=== PATIENT | male | born 1990 | race Two or more races ===

== ENCOUNTER 2023-12-05 22:30 | Observation (INO) ==
[2023-12-05 23:11] LABS: Urine Appearance Clear; Urine Bilirubin Negative (Negative); Urine Blood 2+ (Negative); Urine Color Light-Yellow; Urine Glucose Negative (Negative); Urine Ketones 1+ (Negative); Urine Nitrite Negative (Negative); Urine Protein Trace (Negative); Urine Specific Gravity 1.023 (1.002-1.030); Urine Urobilinogen Negative (Negative)
[2023-12-05 23:13] LABS: Urine Bacteria Absent /HPF (Absent); Urine Red Blood Cell 3+(>10/hpf) /HPF (0-Trace); Urine White Blood Cell Trace(0-5/hpf) /HPF (0-Trace)
[2023-12-06] MEDS: Ondansetron 4 mg VIAL 2 MG/ML 2 ml VIAL IV ONE (00:11)
[2023-12-06 00:17] LABS: ABS Basophils 0.1 10^3/uL (0.0-0.1); ABS Lymphocytes 1.5 10^3/uL (1.0-4.8); ABS Monocytes 0.3 10^3/uL (0.0-1.1); ABS Neutrophils 5.5 10^3/uL (1.5-7.6); Eosinophil % 0.2 %; Hematocrit 42.6 % (38-53); Hemoglobin 14.3 g/dL (13.2-16.3); Lymphocyte % 20.7 %; Mean Corpuscular Hemoglobin 29.2 pg (27-33); Mean Corpuscular Hgb Conc 33.7 g/dL (31-36); Mean Corpuscular Volume 86.8 fL (80-97); Mean Platelet Volume 8.9 fL (7.5-11.2); Platelet Count 221 10^3/uL (150-450); Red Blood Count 4.91 10^6/uL (4.06-5.63); Red Cell Distribution Width 13.4 % (12-17); White Blood Count 7.4 10^3/uL (3.6-10.2)
[2023-12-06 01:14] LABS: Albumin 4.8 g/dL (3.2-5.2); Albumin/Globulin Ratio 1.5 (1-3); C Reactive Protein 8.84 mg/L (<8.01); Calcium 9.7 mg/dL (8.6-10.3); Creatinine, Serum 1.89 mg/dL (0.67-1.17); Globulin 3.1 g/dL (2-4); Potassium 4.5 mmol/L (3.5-5.0); Total Protein 7.9 g/dL (6.4-8.9); eGFR CKD-EPI 47.5 (>60)
[2023-12-06] MEDS: cefTRIAXone 2 gm/50 mL D5W 2 GM/50 ML BAG IV ONE (01:53)
[2023-12-06] MEDS ORDERED: Morphine 2 MG/ML SYRINGE IV PRN ×2 (02:02→03:40)
[2023-12-06] MEDS: Lactated Ringers 1000 ml BAG 1,000 ML IV SCH ×2 (02:05→05:38)
[2023-12-06] MEDS ORDERED: Ondansetron 4 mg VIAL 2 MG/ML 2 ml VIAL IV PRN (03:06)
[2023-12-06] MEDS ORDERED: Senna TAB 8.6 mg TAB PO PRN (03:06)
[2023-12-06] MEDS ORDERED: Polyethylene Glycol 3350 17 GM PACKET PO PRN (03:06)
[2023-12-06 07:27] LABS: ABS Eosinophils 0.1 10^3/uL (0.0-0.5); ABS Lymphocytes 1.8 10^3/uL (1.0-4.8); ABS Monocytes 0.5 10^3/uL (0.0-1.1); ABS Neutrophils 2.9 10^3/uL (1.5-7.6); ABS Nucleated RBC 0.01 10^3/ul; Eosinophil % 1.1 %; Hematocrit 39.4 % (38-53); Hemoglobin 13.2 g/dL (13.2-16.3); Lymphocyte % 33.3 %; Mean Corpuscular Hemoglobin 29.3 pg (27-33); Mean Corpuscular Hgb Conc 33.6 g/dL (31-36); Mean Corpuscular Volume 87.3 fL (80-97); Mean Platelet Volume 9.1 fL (7.5-11.2); Nucleated Red Blood Cells % 0.2 %/100WBC (0.0-0.8); Platelet Count 190 10^3/uL (150-450); Red Blood Count 4.51 10^6/uL (4.06-5.63); Red Cell Distribution Width 13.3 % (12-17); White Blood Count 5.3 10^3/uL (3.6-10.2)
[2023-12-06 08:22] LABS: Calcium 8.9 mg/dL (8.6-10.3); Creatinine, Serum 1.84 mg/dL (0.67-1.17); Potassium 4.1 mmol/L (3.5-5.0)
[2023-12-07 06:19] LABS: ABS Eosinophils 0.1 10^3/uL (0.0-0.5); ABS Lymphocytes 2.3 10^3/uL (1.0-4.8); ABS Monocytes 0.4 10^3/uL (0.0-1.1); ABS Neutrophils 1.3 10^3/uL (1.5-7.6); Eosinophil % 2.9 %; Hematocrit 39.8 % (38-53); Hemoglobin 13.2 g/dL (13.2-16.3); Lymphocyte % 56.3 %; Mean Corpuscular Hemoglobin 29.2 pg (27-33); Mean Corpuscular Hgb Conc 33.3 g/dL (31-36); Mean Corpuscular Volume 87.6 fL (80-97); Mean Platelet Volume 9.3 fL (7.5-11.2); Nucleated Red Blood Cells % 0.1 %/100WBC (0.0-0.8); Platelet Count 199 10^3/uL (150-450); Red Blood Count 4.54 10^6/uL (4.06-5.63); Red Cell Distribution Width 13.5 % (12-17)
[2023-12-07 06:46] LABS: Creatinine, Serum 1.34 mg/dL (0.67-1.17); Potassium 4.4 mmol/L (3.5-5.0); eGFR CKD-EPI 71.7 (>60)
[2023-12-07] MEDS: PTO: Omeprazole 20 mg CAP (NF) PO SCH (07:53)
[2023-12-07 13:15] VITALS: BP 138/102
== END 2023-12-07 14:45 | disposition home or self-care (01) ==
LOC: ED 22:30 → EDHOLD 22:30 → SUATTDRO 12-06 02:04 → MED 12-06 07:41
PROVIDERS: ADMIT Internal Medicine; ATTEND Hospitalist